=== PATIENT | male | born 2000 | race Caucasian/White ===

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

== ENCOUNTER 2024-12-14 14:41 | Outpatient (CLI) | payer BC, SELFPAY ==
--- NOTE | ~2024-12-14 | XR_ITS ---
EXAM/ PROCEDURE: XR pelvis 1-2V - 12/14/2024 14:50 CDT HISTORY: 24 years old Male with Bilat SI pain COMPARISON: None available TECHNIQUE: One view(s) FINDINGS/ IMPRESSION: There are no fractures or dislocations.Joint spaces are within normal limits Reviewed, dictated and finalized at location A.
--- NOTE | ~2024-12-14 | XR_ITS ---
[id number] Ordering provider: Molina Gallegos, DC CCST History: . Neck pain . Comparison: None. FINDINGS: VERTEBRAL BODIES: Normal height and alignment. No visible fracture or subluxation. The dens is intact . Anterior osteophyte is seen at the level of C6. DISK SPACES: Well maintained. PARASPINOUS SOFT TISSUES: No prevertebral soft tissue swelling. IMPRESSION: No acute osseous abnormality cervical spine. Reviewed, dictated and finalized at location A.
--- NOTE | ~2024-12-14 | XR_ITS ---
HISTORY: Mid back pain COMPARISON: None TECHNIQUE: 2 views of the thoracic spine were performed FINDINGS: No acute compression fracture is present. Bone mineralization is age-appropriate. No significant degenerative disease. IMPRESSION: Unremarkable radiographic evaluation of the thoracic spine, as detailed above. Reviewed, dictated and finalized at location A. IMPRESSION: Unremarkable radiographic evaluation of the thoracic spine, as det marcela above.
--- NOTE | ~2024-12-14 | XR_ITS ---
3 VIEWS LUMBAR SPINE Ordering provider: Molina Gallegos, [place] [facility]ST History: . Lbp . Comparison: None. FINDINGS: VERTEBRAL BODIES: No visible fracture or subluxation. Spondylolysis at the level of L5-S1. Mild levos coliosis. DISK SPACES: Normal. SOFT TISSUES: Normal. IMPRESSION: No acute osseous abnormality lumbar spine. Spondylolysis at the level of L5-S1. Reviewed, dictated and finalized at location A.
== END 2024-12-14 14:42 | disposition home or self-care (01) ==
PROVIDERS: PCP Family Medicine; Visit Provider Chiropractor
DX: M54.2 Cervicalgia (principal); M54.6 Pain in thoracic spine; M47.897 Other spondylosis, lumbosacral region
CPT/HCPCS: 72040; 72070; 72100; 72170